=== PATIENT | male | born 1990 | race Caucasian/White ===

== ENCOUNTER 2021-12-24 21:18 | Emergency (ER) | payer SELFPAY ==
[2021-12-24 21:35] VITALS: BP 158/98; PULSE 91; TEMP 98.6; BMI 22.9
[2021-12-24] MEDS ORDERED: SILVER SULFADIAZINE 1% TOP CREAM 50 GM JAR TP ONE ×2 (22:46→22:59)
[2021-12-24] MEDS ORDERED: DIPHTH,PERTUSS(ACELL),TET 0.5 ML DISP.SYRIN IM ONE ×2 (22:46→22:59)
== END 2021-12-24 23:18 | disposition home or self-care (01) ==
LOC: JERFT 21:18
PROC: 3E0234Z Introduction of Serum, Toxoid and Vaccine into Muscle, Percutaneous Approach (ICD-10-PCS; principal; 2021-12-24)
DX: T23.101A Burn of first degree of right hand, unspecified site, initial encounter (principal); X10.2XXA Contact with fats and cooking oils, initial encounter
CPT/HCPCS: 90715; 99284-25

== ENCOUNTER 2024-11-15 00:40 | Inpatient (IN) | payer SELFPAY ==
[2024-11-15 00:52] VITALS: BMI 21.5
[2024-11-15] MEDS: AMPICILLIN NA/SULBACTAM NA 3 GM in SODIUM CHLORIDE 100 ML IVPB ONE (02:30)
[2024-11-15] MEDS ORDERED: AMPICILLIN NA/SULBACTAM NA 3 GM/100 ML BAG IVPB ONE (02:30)
[2024-11-15] MEDS: DIPHTH,PERTUSS(ACELL),TET 0.5 ML DISP.SYRIN IM ONE (02:30)
[2024-11-15] MEDS ORDERED: DIPHTH,PERTUSS(ACELL),TET 0.5 ML DISP.SYRIN IM ONE ×2 (02:30→02:44)
[2024-11-15 02:32] LABS: ABSOLUTE IMMATURE GRANULOCYTES 0.06 x10^3/uL (0.0-0.031); BASOPHILS # 0.13 x10^3/uL (0.01-0.08); EOSINOPHIL % 4.2 % (0.8-7.0); EOSINOPHILS # 0.47 x10^3/uL (0.04-0.54); HEMATOCRIT 40.6 % (40.1-51.0); HEMOGLOBIN 14.2 g/dL (13.7-17.5); MEAN CELL VOLUME 99.3 fl (79.0-92.2); MEAN PLT VOLUME 10.5 fl (9.4-12.4); MONOCYTE # 1.46 x10^3/uL (0.30-0.82); MONOCYTE % 12.9 % (5.3-12.2); PLATELET COUNT 274 x10^3/uL (163-337)
[2024-11-15 03:06] LABS: POTASSIUM 3.8 mmol/L (3.5-5.1)
[2024-11-15 03:09] LABS: ALBUMIN 4.2 g/dl (3.4-5.0); BLOOD UREA NITROGEN 7.3 mg/dL (7-18); CALCIUM 9.4 mg/dL (8.5-10.1); MAGNESIUM 2.5 mg/dL (1.8-2.4)
[2024-11-15 03:13] LABS: CREATININE 0.6 mg/dL (0.55-1.3)
[2024-11-15 03:14] LABS: BILIRUBIN,TOTAL 0.6 mg/dL (0.2-1); TOT PROT 8.3 g/dl (6.4-8.2)
[2024-11-15] MEDS ORDERED: ACETAMINOPHEN 325 MG TABLET (FP) PO PRN (05:15)
[2024-11-15] MEDS ORDERED: DOCUSATE SODIUM 100 MG CAPSULE (FP) PO PRN (05:15)
[2024-11-15] MEDS ORDERED: LORazepam 2 MG TABLET PO PRN (05:20)
[2024-11-15 08:48] VITALS: RESP 18
[2024-11-15] MEDS: AMPICILLIN NA/SULBACTAM NA 3 GM in SODIUM CHLORIDE 100 ML IVPB SCH (08:53)
[2024-11-15] MEDS: MULTIVITAMINS (DAILY MVI) TABLET (FP) PO SCH (09:22)
[2024-11-15] MEDS: FOLIC ACID INJECTION - 1 MG, THIAMINE HCL 100 MG, MULTIVIT INJECTION ADULT 10 ML in SOD... IVPB ONE (10:36)
[2024-11-15 13:01] VITALS: BP 125/74; PULSE 84; TEMP 97.9
[2024-11-15] MEDS ORDERED: AMOX TR/POT CLAV 875MG/125MG TABLETS (FP) PO SCH (17:30)
[2024-11-16] MEDS ORDERED: FOLIC ACID 1 MG TABLET (FP) PO SCH (10:00)
== END 2024-11-15 12:55 | disposition home or self-care (01) | DRG 384 ==
LOC: JER 00:40 → JERBED 02:41 → INTOOBSV 02:41 → J6S 05:37 → OBSVTOIN 10:52
PROVIDERS: ADMIT Internal Medicine; ATTEND Internal Medicine
DX: S61.451A Open bite of right hand, initial encounter (principal); L03.113 Cellulitis of right upper limb; D72.829 Elevated white blood cell count, unspecified; F10.10 Alcohol abuse, uncomplicated; M79.89 Other specified soft tissue disorders; R94.5 Abnormal results of liver function studies; W54.0XXA Bitten by dog, initial encounter; Y93.9 Activity, unspecified; Y92.89 Other specified places as the place of occurrence of the external cause; Y99.9 Unspecified external cause status
CPT/HCPCS: 36415; 73130-TC-RT-FY; 80053; 82607; 82746; 83735; 85025; 87070; 87205; 90715; 93005; 93010; 99285-25; G0378